=== PATIENT | male | born 1960 | race Caucasian/White ===

== ENCOUNTER 2018-03-28 06:12 | Day surgery (SDC) | payer BC ==
[2018-03-27 16:13] VITALS: BMI 29.9
[2018-03-28] MEDS ORDERED: fentaNYL CITRATE 250 MCG/5 ML VIAL ONE (07:02)
[2018-03-28] MEDS ORDERED: PROPOFOL 20 ML ONE (07:03)
[2018-03-28] MEDS ORDERED: MIDAZOLAM HCL 2 MG/2 ML SINGLE DOSE VIAL ONE (07:03)
[2018-03-28] MEDS ORDERED: SUCCINYLCHOLINE CHLORIDE 200 MG/10 ML VIAL ONE (07:03)
[2018-03-28] MEDS ORDERED: LIDOCAINE HCL/PF 2% SDV 5ML VIAL ONE (07:03)
[2018-03-28] MEDS ORDERED: DESFLURANE GAS 240 ML BOTTLE IH ONE (07:25)
[2018-03-28] MEDS ORDERED: BACITRACIN 15 GM TUBE TOPICAL OINTMENT ONE (07:36)
[2018-03-28] MEDS ORDERED: LIDOCAINE HCL 1%, 10 MG/ML (20ML VIAL) ONE (07:36)
[2018-03-28] MEDS ORDERED: BUPIVACAINE HCL/PF 0.25% (2.5MG/ML) 10 ML VIAL ONE (07:55)
--- NOTE | 2018-03-28 07:55 | HP ---
Satellite [facility] - Chief Complaint Chief Complaint: phimosis History of Present Illness: 58 year old male with phimosis, worsening over the last several months causing pain with retraction of foreskin and pain with erections. He requests a circumcision History Source: Patient Limitations to Obtaining History: No Limitations - Past Medical History Allergies/Adverse Reactions: Allergies Allergy/AdvReac Type Severity Reaction Status Date / Time No Known Drug Allergies Allergy Verified 03/27/18 16:13 [employer]: No: Alzheimer's, CVA, Dementia, Migraine, Multiple Sclerosis, Peripheral Neuropathy, Parkinson's, Seizure, Syncope, TIA, Vertigo, Other Cardiovascular: No: AFIB, Aneurysm, Aortic Insufficiency, Aortic Stenosis, CAD, CHF, Deep Vein Thrombosis, HTN, Hyperlipdemia, MN, Mitral Insufficiency, Mitral Stenosis, Murmur, Pulmonary Hypertension, Other Pulmonary: No: Asthma, Bronchitis, Cancer, COPD, O2 Dependent, Pneumonia, Previously Intubated, Pulmonary Embolus, Pulmonary Fibrosis, Sleep Apnea, Other Gastrointestinal: No: Ascites, Cancer, Constipation, Crohn's Disease, Diverticulitis, Diverticulosis, Esophageal Varices, Gastritis, GERD, GI Bleed, Hemorrhoids, Hiatal Hernia, Inflamatory Bowel Disease, Irritable Bowel Disease, Pancreatitis, Peptic Ulcer Disease, Ulcerative Colitis, Other Hepatobiliary: No: Cirrhosis, Cholelithiasis, Cholecystitis, Choledocholithiasis , Hepatitis A, Hepatitis B, Hepatitis C, Other Renal/: Yes: Other (phimosis) - Current Medications Current Medications: Home Medications Medication Instructions Recorded Rosuvastatin Calcium [Crestor] 10 mg PO HS 03/27/18 [facility] Physical Exam - Physical Examination Vital Signs: Vital Signs Period Temp Pulse Resp BP Sys/Parsons Pulse Ox Last 24 Hr 98.6 F-98.6 F 70-70 20-20 128-128/87-87 General Appearance: Well Nourished, Well Developed, Alert & Oriented x3, No Distress, Calm, Anxious, Ashen, Mild Distress, Moderate Distress, Severe Distress, Obese, Pallor, Poor Hygeine, Thin, Other ENT: Clear, No Discharge, No masses, Drooling, Hoarseness, Nasal Congestion, Rhinnorhea, Thrush, Other Lung: Clear to auscultation, Normal air movement, Other Heart: Regular rate & rhythm, Normal S1, Normal S2 Abdomen: Soft, No tenderness, No CVA Extremities: No edema, No tenderness/swelling Pelvic Exam: Other External Genitalia (phimosis) Satellite Impression/Plan - Impression/Plan Impression: phimosis Operative Procedure: circumcision Date to be Performed: 03/28/18
[2018-03-28] MEDS ORDERED: DEXTROSE 5%-0.45% SALINE 1,000 ML IV SCH (08:00)
[2018-03-28] MEDS ORDERED: IBUPROFEN 800 MG/8 ML IJ IVPB SCH (08:00)
[2018-03-28] MEDS ORDERED: ceFAZolin SODIUM 1 GM VIAL ONE (08:11)
[2018-03-28] MEDS ORDERED: DEXAMETHASONE SOD PHOSPHATE 4 MG/1 ML VIAL ONE (08:11)
[2018-03-28] MEDS ORDERED: ceFAZolin SODIUM 1 GM VIAL IVPB ONE (08:13)
[2018-03-28] MEDS ORDERED: ACETAMINOPHEN 1000 MG/100 ML VIAL (NON FORMULARY) IVPB ONE (08:15)
[2018-03-28] MEDS ORDERED: BUPIVACAINE HCL/PF 0.25% (2.5MG/ML) 10 ML VIAL IJ ONE (08:17)
[2018-03-28] MEDS ORDERED: ACETAMINOPHEN INJECTION 100 ML IVPB ONE (08:44)
[2018-03-28] MEDS ORDERED: oxyCODONE HCL 5 MG TABLET PO PRN (08:46)
[2018-03-28] MEDS ORDERED: ONDANSETRON 4 MG/2 ML VIAL IVPUSH PRN (08:46)
--- NOTE | 2018-03-28 08:58 | OP ---
DATE OF OPERATION: 03/28/2018 PREOPERATIVE DIAGNOSIS: Phimosis. POSTOPERATIVE DIAGNOSIS: Phimosis. PROCEDURE: Circumcision. ANESTHESIA: General with local. SURGEON: Omar Mccain MD ESTIMATED BLOOD LOSS: Minimal. SPECIMEN: Foreskin. PREOPERATIVE INDICATIONS: The patient is a 58-year-old male who had difficulty retracting his foreskin, which is causing him pain and pain with erection. He requests circumcision. THE OPERATION: The patient was brought to the OR, placed on the table in the supine position, given general anesthesia and IV antibiotics, and a time-out was performed. The groin was prepped and draped sterilely. Marcaine was injected around the base of the penis in the ring block. A sleeve circumcision was performed. Incision was made below the zuñiga both on the outer aspect and the inner aspect of the foreskin. The foreskin was then dissected off the rest of the penis and sent for pathological evaluation. Hemostasis was maintained with the Bovie. The skin edges were then reapproximated using 4-0 chromic suture in an interrupted circumferential pattern. Wound was then dressed. Patient was woken up. Enrique [id number]
[2018-03-28] MEDS ORDERED: LACTATED RINGERS SOLUTION 1,000 ML IV SCH (09:00)
[2018-03-28] MEDS ORDERED: IBUPROFEN 800 MG/8 ML IJ IVPB ONE (09:33)
[2018-03-28 09:38] VITALS: TEMP 97.4
[2018-03-28 13:18] VITALS: BP 141/87; PULSE 74
--- NOTE | 2018-04-01 17:36 | PATH ---
Surgical Pathology Report Patient Name: MEREDITH HAGAN [facility]. Rec. #: [id number] /Age/Gender: 1960 (Age: 58) / M Account: [id number] Location: [facility] SURGICAL Taken: 03/28/2018 Received: 03/28/2018 Reported: 04/01/2018 Physicians: Omar Mccain M.D. Specimen(s) Received [place] Clinical History Phimosis Final Diagnosis [place], CIRCUMCISION: GENITAL SKIN CONSISTENT WITH [place]. Electronically Signed Tierra Chinchilla M.D. Gross Description Received in formalin labeled "foreskin," are 2 muhammad, wrinkled portions of skin, consistent with foreskin. The specimens measure 3.0 x 2.0 x 0.5 cm and 4.0 x 2.4 x 0.6 cm. No discrete lesions are identified. Rn Admission sections are submitted in one cassette. saudi/03/28/2018
== END 2018-03-28 11:30 | disposition home or self-care (01) ==
LOC: JASU-SURG 06:12
PROVIDERS: ATTEND Urology
PROC: 0VTTXZZ Resection of Prepuce, External Approach (ICD-10-PCS; principal; 2018-03-28 08:00)
DX: N47.1 Phimosis (principal)
CPT/HCPCS: 88304-TC; J0131